=== PATIENT | female | born 1950 | race African-American/Black ===

== ENCOUNTER 2017-04-30 19:15 | Emergency (ER) | payer MEDICARE ==
[2017-04-30 19:22] VITALS: BP 155/86
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
--- NOTE | 2017-05-07 16:51 | VNOTE ---
CALL BACK NOTE CALL BACK Microbiology 04/30/17 Urine Culture - Final, Complete 04/30/17 Urine Culture Result 1 (MARTÍN) - Final, Complete 04/30/17 Urine Culture Result 2 (MARTÍN) - Final, Complete 04/30/17 Antimicrobic Susceptibility - Final, Complete Call placed to the patient's [facility] facility. Spoke with Brandan Locke RN. Order given for macrobid 100mg tablets. 1 tablet BID x 7 days. Dispense 14 and also Rocephin 1 gram IM daily x 3days. States he will discuss the orders with her Doctor (Dr. Hilton). For further questions or changes, contact information left for [facility]. [phone]. EVERETTE FINLEY May 07, 2017 16:51
== END 2017-04-30 22:20 | disposition home or self-care (01) ==
LOC: ER 19:15
DX: T83.028A Displacement of other urinary catheter, initial encounter (principal); I10 Essential (primary) hypertension; E78.00 Pure hypercholesterolemia, unspecified; E11.9 Type 2 diabetes mellitus without complications; Z88.0 Allergy status to penicillin; Z88.1 Allergy status to other antibiotic agents; Z88.2 Allergy status to sulfonamides; Z91.041 Radiographic dye allergy status; Y92.89 Other specified places as the place of occurrence of the external cause
CPT/HCPCS: 51702; 87086; 87186; 99284; A4314